=== PATIENT | female | born 1965 | race Two or more races ===

== ENCOUNTER 2022-06-11 13:59 | Outpatient (REF) | payer MEDICAID, OTHER, SELFPAY ==
--- NOTE | ~2022-06-11 | US_ITS ---
EXAMINATION: [facility] DIAGNOSTIC DIGITAL BREAST TOMOSYNTHESIS, BILATERAL US DIAGNOSTIC ULTRASOUND BREAST, BILATERAL CLINICAL INFORMATION: 57-year-old with fullness right axillary region. Also one episode left nipple yellow discharge. Outside prior mammography from [facility] none available. No known family history breast cancer. TC score 7%. COMPARISON: None (current study represents new baseline exam). TECHNIQUE: Digital breast tomosynthesis is performed in both the craniocaudal and mediolateral oblique views along with computer-aided detection (CAD). Synthesized 2D images are generated from the tomosynthesis. Ultrasound is performed using grayscale imaging and color Doppler without and with harmonics. Right ultrasound is targeted to the area of palpable concern right axilla. Patient is able to point to the area at time of imaging. Left ultrasound is targeted to the retroareolar and periareolar region. FINDINGS: There are scattered areas of fibroglandular density (ACR BI-RADS breast composition Category b). There are no significant masses, abnormal calcifications, or other abnormalities. The axilla and skin contours are unremarkable. Ultrasound right axillary region demonstrates no cystic or solid mass. No lymphadenopathy. Incidental lymph node visualized shows normal marisa architecture and color flow. Ultrasound left breast shows no cystic or solid mass or architectural abnormality or focal duct ectasia. Results are discussed with the patient at time of visit, using an certified court/medical interpreter. US/US breast RT limited IMPRESSION: Right: -No mammographic evidence of malignancy. -Unremarkable targeted ultrasound. Left: -No mammographic evidence of malignancy. -Unremarkable targeted ultrasound. ASSESSMENT: BI-RADS 2: Benign RECOMMENDATION: 1. Patient should be managed based on the clinical impression. If there remains a clinically palpable concern, further evaluation may be considered with surgical consult. If there is recurrent unilateral nipple discharge, further assessment may be considered with breast MRI without and with contrast. 2. Otherwise, routine annual screening mammography. This patient's information was entered into a reminder system with a target due date for their next mammogram.
--- NOTE | ~2022-06-11 | US_ITS ---
EXAMINATION: MM DIAGNOSTIC DIGITAL BREAST TOMOSYNTHESIS, BILATERAL US DIAGNOSTIC ULTRASOUND BREAST, BILATERAL CLINICAL INFORMATION: 57-year-old with fullness right axillary region. Also one episode left nipple yellow discharge. Outside prior mammography from [facility] none available. No known family history breast cancer. TC score 7%. COMPARISON: None (current study represents new baseline exam). TECHNIQUE: Digital breast tomosynthesis is performed in both the craniocaudal and mediolateral oblique views along with computer-aided detection (CAD). Synthesized 2D images are generated from the tomosynthesis. Ultrasound is performed using grayscale imaging and color Doppler without and with harmonics. Right ultrasound is targeted to the area of palpable concern right axilla. Patient is able to point to the area at time of imaging. Left ultrasound is targeted to the retroareolar and periareolar region. FINDINGS: There are scattered areas of fibroglandular density (ACR BI-RADS breast composition Category b). There are no significant masses, abnormal calcifications, or other abnormalities. The axilla and skin contours are unremarkable. Ultrasound right axillary region demonstrates no cystic or solid mass. No lymphadenopathy. Incidental lymph node visualized shows normal marisa architecture and color flow. Ultrasound left breast shows no cystic or solid mass or architectural abnormality or focal duct ectasia. Results are discussed with the patient at time of visit, using an interpreter for the deaf. US/US breast LT limited IMPRESSION: Right: -No mammographic evidence of malignancy. -Unremarkable targeted ultrasound. Left: -No mammographic evidence of malignancy. -Unremarkable targeted ultrasound. ASSESSMENT: BI-RADS 2: Benign RECOMMENDATION: 1. Patient should be managed based on the clinical impression. If there remains a clinically palpable concern, further evaluation may be considered with surgical consult. If there is recurrent unilateral nipple discharge, further assessment may be considered with breast MRI without and with contrast. 2. Otherwise, routine annual screening mammography. This patient's information was entered into a reminder system with a target due date for their next mammogram.
== END 2022-06-11 14:00 | disposition home or self-care (01) ==
LOC: HO.MAMMO 13:59
PROVIDERS: Visit Provider Nurse Practitioner Family
DX: N64.4 Mastodynia (principal); N64.52 Nipple discharge; R59.0 Localized enlarged lymph nodes
CPT/HCPCS: 76642; 77062; 77066